=== PATIENT | male | born 1970 | race Caucasian/White ===

== ENCOUNTER 2017-09-06 22:14 | Emergency (ER) | payer MEDICAID, OTHER ==
[~2017-09-06] VITALS: Ht 175.3 cm; Wt 88.4 kg
[~2017-09-06 22:14] MED LIST: HYDR-3686 PO
[2017-09-06 22:20] VITALS: BP 149/93
[2017-09-06] MEDS ORDERED: cephalexin 500mg capsule PO ONE (22:50)
[2017-09-06] MEDS ORDERED: CEPH500C5 PO (22:58)
== END 2017-09-06 23:14 | disposition home or self-care (01) ==
LOC: ER 22:15
DX: L03.116 Cellulitis of left lower limb (principal); Z98.890 Other specified postprocedural states
CPT/HCPCS: 99283

== ENCOUNTER 2019-02-09 10:34 | Emergency (ER) | payer MEDICAID, OTHER ==
[~2019-02-09] VITALS: Ht 175.3 cm; Wt 87.2 kg
[2019-02-09] MEDS ORDERED: CEPH-572 PO (12:18)
[2019-02-09] MEDS ORDERED: TETanus/Pertussis (Acell)/Diphther VAC/PF (Tdap-Adult) 0.5ml syringe IMVAC ONE (12:30)
[2019-02-09 13:14] VITALS: BP 144/69
== END 2019-02-09 12:40 | disposition home or self-care (01) ==
LOC: ER 10:34
DX: S81.832A Puncture wound without foreign body, left lower leg, initial encounter (principal); Z79.2 Long term (current) use of antibiotics; Z79.899 Other long term (current) drug therapy; Z98.890 Other specified postprocedural states; W26.8XXA Contact with other sharp object(s), not elsewhere classified, initial encounter; Y93.89 Activity, other specified; Y92.89 Other specified places as the place of occurrence of the external cause; Y99.8 Other external cause status
CPT/HCPCS: 90471; 99284

== ENCOUNTER 2021-10-07 14:13 | Emergency (ER) | payer OTHER ==
[~2021-10-07] VITALS: Ht 172.7 cm; Wt 81.8 kg
[2021-10-07 14:26] VITALS: BP 143/106
[2021-10-07] MEDS ORDERED: LIDOcaine 1.5% w/epinephrine 1:200,000 5ml ampul IJ ONE (15:55)
[2021-10-07] MEDS ORDERED: LIDOCAINE 2% w/EPI 1:100:000 30mL injection MDV**cath lab 1 only SQ ONE (16:10)
[2021-10-07] MEDS ORDERED: CEPH500C2 PO (16:49)
== END 2021-10-07 17:02 | disposition home or self-care (01) ==
LOC: ER 14:14
DX: S61.012A Laceration without foreign body of left thumb without damage to nail, initial encounter (principal); Z98.890 Other specified postprocedural states; Z79.2 Long term (current) use of antibiotics; Z79.899 Other long term (current) drug therapy; X58.XXXA Exposure to other specified factors, initial encounter; Y93.89 Activity, other specified; Y92.89 Other specified places as the place of occurrence of the external cause; Y99.8 Other external cause status
CPT/HCPCS: 12001; 99283

== ENCOUNTER 2021-10-19 09:23 | Emergency (ER) | payer OTHER ==
[~2021-10-19] VITALS: Ht 175.3 cm; Wt 82.7 kg
[2021-10-19 09:34] VITALS: BP 147/87
[2021-10-19] MEDS ORDERED: DOXY100C43 PO (10:46)
[2021-10-19] MEDS ORDERED: TETanus/Pertussis (Acell)/Diphther VAC/PF (Tdap-Adult) 0.5ml syringe IMVAC ONE (10:50)
--- NOTE | 2021-10-19 11:25 | NUR ---
returned tdap, unable to scan back into the omni.
== END 2021-10-19 11:28 | disposition home or self-care (01) ==
LOC: ER 09:23
DX: S61.011D Laceration without foreign body of right thumb without damage to nail, subsequent encounter (principal); L03.011 Cellulitis of right finger; Z98.890 Other specified postprocedural states; Z79.2 Long term (current) use of antibiotics; Z79.899 Other long term (current) drug therapy; X58.XXXD Exposure to other specified factors, subsequent encounter
CPT/HCPCS: 90715; 99283